=== PATIENT | female | born 1970 | race Two or more races ===

== ENCOUNTER → 2025-02-07 09:01 | Outpatient (REF) | payer OTHER, SELFPAY ==
[2025-02-07 12:11] LABS: FSH 6.7 mIU/ml
[2025-02-07 12:14] LABS: ALT (SGPT) 58 U/L (0-35); AST (SGOT) 36 U/L (14-36); Albumin 4.6 g/dl (3.5-5.0); Alkaline Phosphatase 65 U/L (38-126); Blood Urea Nitrogen 14 mg/dl (7-17); Calcium 9.7 mg/dl (8.4-10.2); Carbon Dioxide 27 mmol/L (22-30); Chloride 101 mmol/L (98-107); Glucose 263 mg/dl (70-99); Potassium 4.4 mmol/L (3.5-5.1); Sodium 139 mmol/L (135-145); Total Protein 7.9 g/dl (6.3-8.2); eGFR > 60.00
== END ==
LOC: WDC 09:01
PROVIDERS: ATTENDING PHYSICIAN Internal Medicine Hematology & Oncology; FAMILY PHYSICIAN Nurse Practitioner Adult Health
DX: N64.59 Other signs and symptoms in breast (principal); N64.4 Mastodynia; C50.911 Malignant neoplasm of unspecified site of right female breast; C64.2 Malignant neoplasm of left kidney, except renal pelvis; Z13.820 Encounter for screening for osteoporosis
CPT/HCPCS: 36415; 76642; 77063; 77067; 80053; 82670; 82671; 83001; 83002